=== PATIENT | female | born 2000 | race Caucasian/White ===

== ENCOUNTER 2019-03-04 18:35 | Emergency (ER) | payer OTHER ==
[~2019-03-04] VITALS: Ht 162.6 cm; Wt 82.1 kg
[~2019-03-04 18:35] MED LIST: BACTRIM1 TAB PO; LAC PO; ZOF4 PO
[2019-03-04 19:29] VITALS: Ht 162.6 cm; Wt 82.1 kg
[2019-03-05 00:09] VITALS: BP 110/71
== END 2019-03-05 00:09 | disposition home or self-care (01) ==
LOC: ED 18:35
DX: L05.01 Pilonidal cyst with abscess (principal); R03.0 Elevated blood-pressure reading, without diagnosis of hypertension
CPT/HCPCS: J0696

== ENCOUNTER 2019-06-30 01:06 | Emergency (ER) | payer OTHER ==
[~2019-06-30] VITALS: Ht 162.6 cm; Wt 77.1 kg
[2019-06-30 01:16] VITALS: Ht 162.6 cm; Wt 77.1 kg
[2019-06-30 03:44] VITALS: BP 109/66
== END 2019-06-30 03:44 | disposition home or self-care (01) ==
LOC: ED 01:06
DX: S09.8XXA Other specified injuries of head, initial encounter (principal); W22.8XXA Striking against or struck by other objects, initial encounter; Y93.89 Activity, other specified; Y92.89 Other specified places as the place of occurrence of the external cause; Y99.8 Other external cause status

== ENCOUNTER 2020-01-28 00:38 | Emergency (ER) | payer OTHER ==
[~2020-01-28] VITALS: Ht 162.6 cm; Wt 81.2 kg
[2020-01-28 00:47] VITALS: Ht 162.6 cm; Wt 81.2 kg
[2020-01-28 03:31] LABS: PLATELET COUNT 359 x10^3mcL (130-400)
[2020-01-28 03:51] LABS: MONOCYTE 6 % (0-7); SEGMENTED NEUTROPHILS 58 % (37-75)
[2020-01-28 03:52] LABS: PLATELET MORPHOLOGY PLATELETS NORMAL; rbc morphology (normal/abnorm) NORMAL (NORMAL)
[2020-01-28 04:16] LABS: CALCIUM 9.2 mg/dL (8.5-10.1); CARBON DIOXIDE 28.8 mmol/L (21-32); CHLORIDE SERUM 103 mmol/L (98-107); CREATININE SERUM 0.7 mg/dL (0.6-1.0); GFR1 > 60 mL/min; GLUCOSE SERUM 95 mg/dL (74-106); POTASSIUM SERUM 3.8 mmol/L (3.5-5.1); SODIUM SERUM 138 mmol/L (136-145)
[2020-01-28 04:22] LABS: ALBUMIN 4.1 g/dL (3.4-5.0); ALKALINE PHOSPHATASE 69 U/L (46-116); ALT/SGPT 43 U/L (14-59); AST/SGOT 21 U/L (15-37); BILIRUBIN TOTAL 0.32 mg/dL (0.20-1.00); LIPASE 112 IU/L (73-393)
[2020-01-28 07:04] VITALS: BP 107/80
== END 2020-01-28 07:04 | disposition home or self-care (01) ==
LOC: ED 00:38
PROVIDERS: Emergency Medicine
DX: R10.813 Right lower quadrant abdominal tenderness (principal); K76.0 Fatty (change of) liver, not elsewhere classified; M54.2 Cervicalgia; V49.49XA Driver injured in collision with other motor vehicles in traffic accident, initial encounter; Y93.I9 Activity, other involving external motion; Y92.488 Other paved roadways as the place of occurrence of the external cause; Y99.8 Other external cause status
CPT/HCPCS: Q9967